=== PATIENT | female | born 1990 | race Caucasian/White ===

== ENCOUNTER → 2019-04-05 | Outpatient (CLI) | payer OTHER ==
[2019-04-06 17:52] LABS: AMP/METHAMP Negative (Negative); BARBITURATES Negative (Negative); BENZODIAZEPINES Negative (Negative); COCAINE Negative (Negative); METHADONE Negative (Negative); OPIATES Negative (Negative); PCP Negative (Negative)
--- NOTE | 2019-04-08 08:34 | SLE ---
[facility] [address] [place] [address] POLYSOMNOGRAPHY STUDY Name: OC HAND Room #: REG [facility]#: [id number] Admission: 04/05/19 Attend Phys: Bryson Figueroa MD Discharge: Date of : 88 Report #: [id number] THIS REPORT FOR: //name// CC: Bryson Figueroa [facility] physician/PCP HELADIO Liu DATE OF SERVICE: 04/05/2019 SLEEP STUDY ATTENDING PHYSICIAN: Dr. Heladio Liu. The patient is a 28 years old who weighs 151 pounds with a BMI of 25.9. 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 She was also reportedly noted to wake up at destinations where she had no recollection of the arousals. Sleep study followed by MSLT was ordered. Results of polysomnogram are discussed here. The patient also had a urine drug screen, which was negative. Medications were reviewed as well as sleep diary was reviewed. During the night study, the patient spent 459 minutes in bed and slept for 419 minutes with normal sleep efficiency of 91%. Sleep latency was 6.2 minutes with a REM latency of 76 minutes. Sleep architecture showed normal stage 1 sleep, slightly increased stage 2 sleep, which was 59% of total sleep time. Normal slow wave and normal REM sleep. REM sleep was 19% of total sleep time. During the night study, the patient had one apnea, which was central and 4 hypopneas. Total apnea-hypopnea index for the entire night was 0.7 per hour with a REM index of 0.8 per hour and a supine index of 0.8 per hour as well. EKG monitoring revealed average heart rate of 64 beats per minute. No sustained arrhythmias observed. No PLM seen. Nocturnal oximetry study revealed an average oxygen saturation of 97% with a lowest of 84%, which appeared to be an artifact. No clinically significant desaturations of less than 89% were observed. Due to low AHI, the patient did not meet the split night criteria for CPAP initiation. IMPRESSION: 1. No clinically significant sleep disorder breathing. The patient's AHI for [facility] [address] [place] [address] POLYSOMNOGRAPHY STUDY Name: OC HAND [id number] Admission: 04/05/19 Attend Phys: Bryson Figueroa MD Discharge: Date of : 88 Report #: [id number] the entire night was 0.7 per hour. 2. Normal sleep efficiency of 91%. 3. No clinically significant periodic limb movements of sleep. 4. No clinically significant nocturnal hypoxia. RECOMMENDATIONS: 1. The patient did not meet the split night criteria for CPAP initiation. 2. The patient has moderate to severe subjective hypersomnia. The patient underwent an MSLT the next day to rule out other disorders such as narcolepsy or idiopathic hypersomnia and it is reported separately. 3. 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 4. Cautioned regarding driving or operating heavy machinery until the patient's hypersomnia is resolved. <ELECTRONICALLY SIGNED> By: Bryson Figueroa MD 04/08/19 0834 [id number] Bryson Figueroa MD /nt
--- NOTE | 2019-04-08 08:34 | SLE ---
[facility] [place] [place] [address] POLYSOMNOGRAPHY STUDY Name: OC HAND Room #: REG [facility]#: [id number] Admission: 04/05/19 Attend Phys: Bryson Figueroa MD Discharge: Date of : 88 Report #: [id number] THIS REPORT FOR: //name// CC: Bryson Figueroa [facility] physician/PCP HELADIO Liu DATE OF SERVICE: 04/06/2019 MULTIPLE SLEEP LATENCY TESTS ATTENDING PHYSICIAN: Dr. Heladio Liu. The patient is a 28-year-old who weighs 151 pounds with a BMI of 25.9. The patient's Caballo score was 15. The patient initially underwent a polysomnogram and was found to have no clinically significant sleep disordered breathing. The patient's AHI for the entire night was only 0.7 per hour. The patient's sleep efficiency was 91% and the patient had no evidence of PLMs. The patient underwent MSLT the next day to rule out other disorders causing hypersomnia. The patient's urine drug screen was negative. A standard MSLT protocol was used. The patient was allowed 5 daytime nap opportunities spaced at 2-hour intervals. During the first nap session, the patient's sleep latency was 1 minute and 12 seconds and REM sleep was observed. During the second nap session, the patient's sleep latency was again short at 2 minutes and 30 seconds and REM sleep was observed. During the third nap session, the patient's sleep latency was 5 minutes and 24 seconds and REM sleep was observed. During the fourth nap session, the patient's sleep latency was again short at 2 minutes and 30 seconds and no REM sleep observed. During the fifth nap session, the patient's sleep latency was 2 minutes and 30 seconds and no REM sleep was observed. The patient's mean sleep latency for all 5 naps was 2 minutes and 49 seconds and REM sleep was observed in 3/5 nap sessions. IMPRESSION: Abnormal multiple sleep latency tests with severe pathological hypersomnia consistent with narcolepsy. The patient's mean sleep latency for all 5 naps was very short at 2 minutes and 49 seconds and the patient had 3 REM periods out of 5 naps. RECOMMENDATIONS: 1. As discussed above, patient's multiple sleep latency tests is consistent with narcolepsy. 2. The patient should be initiated on stimulant medication to see clinical response. [facility] [address] [place] [address] POLYSOMNOGRAPHY STUDY Name: OC HAND Room #: REG CL [facility]#: [id number] Admission: 04/05/19 Attend Phys: Bryson Figueroa MD Discharge: Date of : 88 Report #: [id number] 3. The patient should also be followed up for any symptoms of cataplexy. 4. 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 5. Cautioned regarding driving until the patient's hypersomnia is resolved. <ELECTRONICALLY SIGNED> By: Bryson Figueroa MD 04/08/19 0834 [id number] Bryson Figueroa MD /emerson
== END ==
LOC: SLEEPLAB
PROVIDERS: Internal Medicine Critical Care Medicine
DX: G47.33 Obstructive sleep apnea (adult) (pediatric) (principal)